=== PATIENT | female | born 1950 | race Caucasian/White ===

== ENCOUNTER → 2017-07-26 | Outpatient (CLI) | payer OTHER | LOC: FIMAGING 09:25 | PROVIDERS: ATTEND Obstetrics & Gynecology | DX: Z12.31 Encounter for screening mammogram for malignant neoplasm of breast (principal) | CPT/HCPCS: G0202 ==

== ENCOUNTER 2018-07-17 14:25 | Day surgery (SDC) | payer OTHER ==
[2018-07-17] MEDS ORDERED: LR 1,000 ML IV ONE (14:43)
[2018-07-17] MEDS ORDERED: LIDOCAINE 1% 2 ML INJ ID PRN (14:43)
[2018-07-17] MEDS ORDERED: PROPOFOL/EMULSION 500 MG/50 ML BOTTLE IV ONE (15:48)
[2018-07-17] MEDS ORDERED: fentaNYL 100 MCG/2 ML INJ ONE (15:48)
[2018-07-17] MEDS ORDERED: INDOMETHACIN 50 MG SUPP PR PRN (15:53)
--- NOTE | 2018-07-17 15:53 | PDGENHP ---
History & Physical Chief Complaint: complex polyp in ascending colon History of Present Illness: 67 year old female presents for evaluation of complex ac polyp Pertinent Past, Social, Family History: PMHx: No cardiac or lung issues Relevant Physical Exam: HEENT: anicteric. CV: RRR +s1s2. Lungs: CTAB. Abd: soft, nt, + bs Cardiorespiratory Assessment: ASA 2
[2018-07-17] MEDS ORDERED: NS 500 ML IV SCH (16:00)
[2018-07-17] MEDS ORDERED: ONDANSETRON 4 MG/2 ML VIAL IVP PRN (16:36)
[2018-07-17] MEDS ORDERED: NALOXONE HCL 0.4 MG/ML INJ IVP PRN (16:36)
[2018-07-17] MEDS ORDERED: ALBUTEROL 3 ML DEYVIAL IH PRN (16:36)
--- NOTE | 2018-07-17 16:36 | PDANEPAE ---
ANE Past Medical History - Cardiovascular History Hx Hypertension: No Hx Arrhythmias: No Hx Chest Pain: No Hx Coronary Artery / Peripheral Vascular Disease: No Hx CHF / Valvular Disease: No Hx Palpitations: No Cardiovascular History Comment: heart murmur as child- repaired at 8 yo - Pulmonary History Hx COPD: No Hx Asthma/Reactive Airway Disease: No Hx Recent Upper Respiratory Infection: No Hx Oxygen in Use at Home: No Hx Sleep Apnea: No Sleep Apnea Screening Result - Last Documented: Negative - Neurologic History Hx Cerebrovascular Accident: No Hx Seizures: No Hx Dementia: No - Endocrine History Hx Diabetes: No - Renal History Hx Renal Disorders: No - Liver History Hx Hepatic Disorders: No - Neurological & Psychiatric Hx Hx Neurological and Psychiatric Disorders: No - Cancer History Hx Cancer: No - Congenital Disorder History Hx Congenital Disorders: No - GI History Hx Gastrointestinal Disorders: No - Other Health History Other Health History: none - Chronic Pain History Chronic Pain: No - Surgical History Prior Surgeries: at 8 yo patent ovale foramen ANE Review of Systems Review of Systems: - Exercise capacity METS (RN): 5 METS ANE Patient History - Allergies Allergies/Adverse Reactions: No Known Allergies Allergy (Verified 06/08/16 14:00) - Home Medications Home Medications: Herbals/Supplements -Info Only 06/08/16 [Last Taken 07/09/18] Aspirin 06/14/18 [Last Taken 07/09/18] Erythromycin 2% Solution 06/14/18 [Last Taken 07/15/18] Xiidra 06/14/18 [Last Taken 07/17/18] - NPO status NPO Since - Liquids (Date): 07/17/18 NPO Since - Liquids (Time): 08:00 NPO Since - Solids (Date): 07/16/18 NPO Since - Solids (Time): 10:00 - Smoking Hx Smoking Status: Former smoker - Family Anes Hx Family Hx Anesthesia Complications: none ANE Labs/Vital Signs - Vital Signs Blood Pressure: 145/78 Heart Rate: 82 Respiratory Rate: 16 O2 Sat (%): 99 Height: 167.64 cm Weight: 63.503 kg ANE Physical Exam - Airway Neck exam: FROM Mallampati Score: Class 2 Mouth exam: normal dental/mouth exam - Pulmonary Pulmonary: no respiratory distress - Cardiovascular Cardiovascular: regular rate and rhythym - ASA Status ASA Status: II ANE Anesthesia Plan Total IV Anesthesia: Yes
--- NOTE | 2018-07-17 16:40 | GIREPORT ---
[facility] - Endoscopy Department Patient Name: Helen Damico Procedure Date: 07/17/2018 3:47 PM Patient Type: Outpatient Attending MD/ ER Physician: Fletcher Sawyer MD Procedure: Colonoscopy Indications: High risk colon cancer surveillance: Personal history of colonic polyps Patient Profile: 67 year old female with a history of a complex ascending colon presents for surveillance colonoscopy. Providers: Fletcher Sawyer MD Medicines: Monitored Anesthesia Care Complications: No immediate complications. Estimated blood loss: Minimal. Description of Procedure: After obtaining informed consent, the scope was passed under direct vis ion. Throughout the procedure, the patient's blood pressure, pulse, and oxyg en saturations were monitored continuously. The Colonoscope was introduced through the anus and advanced to the cecum, identified by appendiceal orifice and ileocecal valve. The colonoscopy was performed without difficulty. The patient tolerated the procedure well. The quality of th e bowel preparation was good. The ileocecal valve, appendiceal orifice, a nd rectum were photographed. Findings: The perianal and digital rectal examinations were normal. Pertinent negatives include normal sphincter tone. Diverticula were found in the sigmoid colon, descending colon and ascen ding colon. A 13 mm polyp was found in the ascending colon. The polyp was sessile. The polyp was removed with a piecemeal technique using a hot snare. Resecti on and retrieval were complete. A 15 mm polyp was found in the ascending colon. A scar was noted next t o it consistent with remnant polyp. The polyp was sessile. The polyp was rem miguel with a hot snare in a piecemeal fashion. Resection and retrieval were complete. Estimated Blood Loss: Estimated blood loss was minimal. Post Op Diagnosis: - Diverticulosis in the sigmoid colon, in the descending colon and in t he ascending colon. - One 13 mm polyp in the ascending colon, removed piecemeal using a hot snare. Resected and retrieved. - One 15 mm polyp in the ascending colon, removed with a hot snare polypectomy in a piecemeal fasion. Resected and retrieved. Recommendation: - Discharge patient to home (with escort). - Resume previous diet. - Continue present medications. - Repeat colonoscopy in 1 year for surveillance after piecemeal polypec marlene. - Await pathology results. - Use fiber, for example Citrucel, Fibercon, Konsyl or Metamucil. - Thank you for allowing me to participate in the care of your patient. Attending Participation: I personally performed the entire procedure. Fletcher Sawyer MD Fletcher Sawyer MD 07/17/2018 4:40:01 PM This report has been signed electronicallyFletcher Sawyer MD Number of Addenda: 0 Note Initiated On: 07/17/2018 3:47 PM Total Procedure Duration Time 0 hours 26 minutes 17 seconds [email or web address]
--- NOTE | 2018-07-17 16:47 | POSTANESTH ---
Post Anesthetic Evaluation Cardiovascular Status: Similar to Pre-Op Cond Respiratory Status: Similar to Pre-op Cond. Level of Consciousness/Mental Status: Mildly Sleepy, Arousable Pain Control: Adequate, Prn Tx Ordered Nausea/Vomiting Control: Adequate, Prn Tx Ordered Complications Possibly Related to Anesthesia: None Noted
[2018-07-17 17:19] VITALS: BP 122/67
== END 2018-07-17 17:32 | disposition home or self-care (01) ==
LOC: FSGY 14:25
PROVIDERS: ATTEND Internal Medicine Gastroenterology
PROC: 0DBK8ZZ Excision of Ascending Colon, Via Natural or Artificial Opening Endoscopic (ICD-10-PCS; principal; 2018-07-17 16:00)
DX: D12.2 Benign neoplasm of ascending colon (principal); K57.30 Diverticulosis of large intestine without perforation or abscess without bleeding
CPT/HCPCS: J2704; J3010

== ENCOUNTER → 2018-08-01 | Outpatient (CLI) | payer OTHER | LOC: FIMAGING 09:44 | PROVIDERS: ATTEND Obstetrics & Gynecology | DX: Z12.31 Encounter for screening mammogram for malignant neoplasm of breast (principal) ==